=== PATIENT | female | born 1985 | race Caucasian/White ===

== ENCOUNTER 2019-12-17 13:18 | Emergency (ER) | payer BC ==
[~2019-12-17] VITALS: Ht 167.6 cm; Wt 136.1 kg
[2019-12-17] MEDS ORDERED: BUSPIRONE HCL10 MG PO (13:52)
[2019-12-17] MEDS ORDERED: HYDROXYZINE HCL25 M2 PO (13:52)
[2019-12-17] MEDS ORDERED: ZOLOFT25 MG PO (13:52)
[2019-12-17] MEDS ORDERED: LORAZEPAM 0.50.5 MG PO (13:53)
[2019-12-17] MEDS ORDERED: PREDNISONE 5 MG5 M1 PO (13:53)
[2019-12-17 14:10] LABS: URINE BILIRUBIN NEGATIVE (Negative); URINE BLOOD NEGATIVE (Negative); URINE CLARITY CLEAR; URINE COLOR YELLOW; URINE GLUCOSE-RANDOM NEGATIVE (Negative); URINE KETONES NEGATIVE (Negative); URINE LEUKOCYTES NEGATIVE (Negative); URINE NITRITE NEGATIVE (Negative); URINE PROTEIN NEGATIVE (Negative); URINE SPECIFIC GRAVITY 1.015 (1.005-1.030); URINE UROBILINOGEN 0.2 E.U./dl (0.2-1.0)
[2019-12-17 14:23] LABS: AMP/METHAMP Negative (Negative); BARBITURATES Negative (Negative); BENZODIAZEPINES Negative (Negative); COCAINE Negative (Negative); METHADONE Negative (Negative); OPIATES Negative (Negative); PCP Negative (Negative); THC Negative (Negative)
[2019-12-17 14:45] LABS: HEMATOCRIT 37.5 % (37.0-47.0); HEMOGLOBIN 12.6 gm/dL (12.0-15.0); MCH 28.6 pg (26.0-34.0); MCHC 33.6 g/dL (28.0-37.0); MCV 85.3 fL (80.0-100.0); MPV 8.7 fl. (7.2-11.1); RBC 4.4 mil/uL (4.20-5.00); WBC 13.4 thou/uL (4.0-11.0)
[2019-12-17 14:52] LABS: CALCIUM 8.1 mg/dL (8.5-10.1); POTASSIUM 3.2 mmol/L (3.5-5.1)
[2019-12-17 14:57] LABS: ALBUMIN 3.2 g/dL (3.4-5.0); TOTAL BILIRUBIN 0.4 mg/dL (<0.1-1.0); TOTAL PROTEIN 8.4 g/dL (6.4-8.2)
[2019-12-17 15:14] LABS: SALICYLATE < 2.8 mg/dL (2.8-20.0)
[2019-12-17 15:18] LABS: ACETAMINOPHEN < 2 ug/mL (10-30); ALCOHOL < 10 mg/dL (<10)
[2019-12-17 16:40] VITALS: BP 150/70
== END 2019-12-17 16:40 | disposition home or self-care (01) ==
LOC: M.ERS 13:18
PROVIDERS: Personal Emergency Response Attendant
DX: S61.512A Laceration without foreign body of left wrist, initial encounter (principal); F91.9 Conduct disorder, unspecified; F32.9 Major depressive disorder, single episode, unspecified; F41.9 Anxiety disorder, unspecified; W26.0XXA Contact with knife, initial encounter; Y93.89 Activity, other specified; Y92.89 Other specified places as the place of occurrence of the external cause; Y99.8 Other external cause status